=== PATIENT | male | born 1960 | race Caucasian/White ===

== ENCOUNTER 2017-12-07 07:44 | Day surgery (SDC) | payer OTHER ==
--- NOTE | 2017-11-30 09:15 | RADIOLOGY REPORT (SQ) ---
EXAM DESCRIPTION: CHEST PA/LATERAL COMPLETED DATE/TIME: 11/30/2017 9:02 am REASON FOR STUDY: PRE-OP COMPARISON: AP chest 04/26/2010 EXAM PARAMETERS: NUMBER OF VIEWS: two views TECHNIQUE: Digital Frontal and Lateral radiographic views of the chest acquired. RADIATION DOSE: NA LIMITATIONS: none FINDINGS: LUNGS AND PLEURA: No opacities, masses or pneumothorax. No pleural effusion. MEDIASTINUM AND HILAR STRUCTURES: No masses or contour abnormalities. HEART AND VASCULAR STRUCTURES: Heart normal size. No evidence for failure. BONES: No acute findings. HARDWARE: None in the chest. OTHER: No other significant finding. IMPRESSION: NO SIGNIFICANT RADIOGRAPHIC FINDING IN THE CHEST. TECHNICAL DOCUMENTATION: JOB ID: [id number] [employer]- All Rights Reserved Reading location - IP/workstation name: [email or web address]
--- NOTE | 2017-11-30 09:22 | EKG REPORT ---
SEVERITY:- NORMAL ECG - SINUS RHYTHM : Confirmed by: Leobardo Quintana 30-Nov-2017 09:21:11
[2017-11-30 09:32] LABS: ABSOLUTE BASOPHILS # (AUTO) 0.1 10^3/uL (0.0-0.2); ABSOLUTE EOSINOPHILS # (AUTO) 0.3 10^3/uL (0.0-0.6); ABSOLUTE LYMPHOCYTES (AUTO) 1.9 10^3/uL (0.5-4.7); ABSOLUTE MONOCYTES (AUTO) 0.6 10^3/uL (0.1-1.4); ABSOLUTE NEUT (AUTO) 5.1 10^3/uL (1.7-8.2); BASOPHILS % (AUTO) 0.6 % (0-2); EOSINOPHILS % (AUTO) 3.9 % (0-6); HEMATOCRIT 43.6 % (37.9-51.0); HEMOGLOBIN 14.3 g/dL (13.5-17.0); LYMPHOCYTES % (AUTO) 23.8 % (13-45); MEAN CORPUSCULAR HEMOGLOBIN 26.5 pg (27.0-33.4); MEAN CORPUSCULAR HGB CONC 32.9 g/dL (32.0-36.0); MEAN CORPUSCULAR VOLUME 81 fl (80-97); MONOCYTES % (AUTO) 7.5 % (3-13); PLATELET COUNT 327 10^3/uL (150-450); RED BLOOD COUNT 5.41 10^6/uL (4.35-5.55); RED CELL DISTRIBUTION WIDTH 14.2 % (11.5-14.0); SEGMENTED NEUTROPHILS % (AUTO) 64.2 % (42-78); TOTAL CELLS COUNTED % (AUTO) 100 %
[2017-11-30 09:35] LABS: APPEARANCE,URINE CLEAR; BILIRUBIN,URINE NEGATIVE (NEGATIVE); COLOR,URINE YELLOW; GLUCOSE, URINE NEGATIVE (NEGATIVE); KETONES,URINE NEGATIVE (NEGATIVE); LEUKOCYTE ESTERASE,URINE NEGATIVE (NEGATIVE); NITRITE,URINE NEGATIVE (NEGATIVE); PROTEIN,URINE NEGATIVE (NEGATIVE); URINE SPECIFIC GRAVITY 1.013; UROBILINOGEN,URINE NEGATIVE mg/dL (<2.0)
[2017-11-30 10:02] LABS: ANION GAP 13 (5-19); BLOOD UREA NITROGEN 17 mg/dL (7-20); CALCIUM 9.6 mg/dL (8.4-10.2); CARBON DIOXIDE 29 mmol/L (22-30); CHLORIDE 97 mmol/L (98-107); GLUCOSE 210 mg/dL (75-110); POTASSIUM 4.3 mmol/L (3.6-5.0); SODIUM 139.3 mmol/L (137-145)
[~2017-12-07 07:44] MED LIST: BUPIVACAINE HCL 0.5 % INJ/PF 30 ML SDV ONE; CEFAZOLIN 2 GM/D5W RTU 2 GM/50 ML RTUPB IV PRN; NORMAL SALINE 1000 ML (RENAL PATIENTS) IV PRN
[2017-12-07] MEDS ORDERED: CEFAZOLIN SODIUM 2 GM in DEXTROSE 5%-WATER 100 ML IV PRN (08:01)
[2017-12-07 09:13] LABS: POTASSIUM 4.1 mmol/L (3.6-5.0)
[2017-12-07] MEDS ORDERED: MORPHINE SULFATE 10 MG/ML INJ IV PRN ×2 (10:24→11:24)
[2017-12-07] MEDS ORDERED: DIPHENHYDRAMINE HCL 50 MG/ML VIAL IV PRN (10:24)
[2017-12-07] MEDS ORDERED: FENTANYL CITRATE INJ/PF 100 MCG/2 ML AMPUL IV PRN ×3 (10:24)
[2017-12-07] MEDS ORDERED: MEPERIDINE HCL/PF INJ 25 MG/1 ML DISP.SYRIN IV PRN (10:24)
[2017-12-07] MEDS ORDERED: ONDANSETRON HCL INJ/PF 4 MG/2 ML SDV IV PRN ×2 (10:24→11:24)
[2017-12-07] MEDS ORDERED: PROMETHAZINE HCL INJ 25 MG/1 ML VIAL IV PRN ×2 (10:24)
--- NOTE | 2017-12-07 11:08 | Operative Report ---
Operative Report DATE OF SURGERY: 12/07/17 PREOPERATIVE DIAGNOSIS: Left hand spontaneous EPL tendon rupture POSTOPERATIVE DIAGNOSIS: Left hand spontaneous EPL rupture OPERATION: LEFT extensor indicis proprius to extensor pollicis longus tendon transfer SURGEON: KRISTINE HARRELL ANESTHESIA: GA COMPLICATIONS: None ESTIMATED BLOOD LOSS: Minimal PROCEDURE: Indication for above procedure: 57-year-old male with history of injury to his hand. Ever since the original injury he has been unable to extend his thumb. Upon examination of the office he was found to have a EPL spontaneous rupture. We discussed treatment options including operative versus nonoperative intervention including postoperative prognosis, outcomes and rehabilitation. After discussing risks and benefits decision was made to proceed with operative treatment. Procedure In Detail: Patient was seen and evaluated in the preoperative holding area. The LEFT upper extremity was initialized and marked. Patient received 2g of Ancef IV for bacterial prophylaxis. Patient was taken back to the operative room where transferred to the operative table and placed under general anesthesia. Once they were adequately anesthetized a nonsterile tourniquet was placed on the upper extremity. A surgical team debriefing was performed ensuring all instrumentation was available, the surgical procedure was discussed with possible concerns reviewed. The upper extremity was prepped with chlorhexidine and alcohol and draped in a sterile fashion. A timeout was done identifying correct patient, procedure and extremity everyone in attendance agree with this and verbalized no concerns. The extremity was exsanguinated the tourniquet was inflated to 250 mmHg. Longitudinal skin incision was made centered over the STT joint. Blunt dissection was performed. Small peripheral veins were coagulated with bipolar cautery. The EPL tendon was then identified with significant scarring to the underlying soft tissues and rupture at the level of the radial styloid. Extensor tenolysis of the EPL tendon was performed fully exposing the tendon and retracting it from the wound. I then turned my attention to proximally. Longitudinal skin incision was made along Cielo's tubercle. Dissection was performed. A tunnel between the EPL remanent distally and the dorsal skin incision was established. I then made a small transverse incision within the extensor retinaculum overlying the fourth dorsal compartment and the muscular EIP tendon was identified. A transverse skin incision was made over the index MP joint. Blunt dissection performed and the ulnar extensor tendon was identified. I then confirmed the EIP tendon proximally and distally once this was confirmed it was released distally at the MCP joint and tunneled to the dorsal wound. From the dorsal wound it was then tunneled to the wound overlying the STT joint. While maintaining wrist extension and full thumb extension including the MP and IP joints for Pulvertaft weave's were placed into the distal remnant of the EPL tendon. This was then secured with horizontal mattress 3-0 Ethibond suture after the first suture was placed I checked tenodesis to confirm full extension of the thumb with wrist flexion and flexion of the thumb tip to the level of the PIP joint with wrist extension. Once I was satisfied with the tension. I completed fixation of the Pulvertaft weave with additional horizontal mattress 3 -0 Ethibond. The remanent of the EIP tendon was then folded back onto itself and secured with [id number] sutures. Once again tenodesis of the wrist was performed confirming adequate tension of the tendon transfer. The remanent EIP and EPL tendons were then debrided. Wound was copiously irrigated with normal saline. Subcutaneous tissues were closed with interrupted 4-0 Monocryl suture. Skin was closed with 4-0 nylon suture. 20 cc of 0.5% Marcaine with epinephrine was injected for postoperative pain control. Wound was dressed Xeroform 4 x 4's and patient was placed in a thumb spica splint maintaining full extension of the IP and MP joints and wrist at 25 of extension. Tourniquet was deflated. Patient had good peripheral perfusion. Sponge counts, instrument counts, needle counts counts were correct. Patient was then awoken from anesthesia. Transferred from the operating room table to the operating room stretcher. There was no intraoperative complications patient tolerated procedure well stable to PACU. Postoperative plan: Patient will follow-up the office in 2 weeks at which point sutures will be removed to be transitioned to a thumb spica cast. At 4 weeks postoperatively patient will be set up for occupational therapy to begin as per EIP-EPL tendon transfer.
[2017-12-07] MEDS ORDERED: RINGERS SOLUTION,LACTATED 1,000 ML IV PRN (11:24)
[2017-12-07] MEDS ORDERED: OXYCODONE-ACETAMINOPHEN 5-325 MG TABLET PO PRN (11:24)
--- NOTE | 2017-12-07 11:24 | Discharge Summary ---
Discharge Summary (SDC) - Discharge Final Diagnosis: Rupture of flexor pollicis longus left hand Date of Surgery: 12/07/17 Discharge Date: 12/07/17 Condition: Good Treatment or Instructions: Schedule Follow Up w/ Dr. Oneal Matamoros @ [facility] to be seen in 10-14 days or as scheduled [place]: [place]: [place]: Ice and elevate Keep splint clean/dry/intact. If your fingers become numb please unwrap the Ras wrap but leave the splint in place, if the sensation does not return within 30 minutes please return to the emergency department. Please use ibuprofen (Motrin or Advil) 600-800 mg every 8 hours as needed for pain or fever DO NOT TAKE w/ TORADOL may use once TORADOL complete. You may also use acetaminophen (Tylenol) 1000 mg every 4-6 hours as needed for pain or fever. Please be aware that many medications contain acetaminophen, do not exceed a total of 1000 mg of acetaminophen every 6 hours. If ibuprofen and acetaminophen are not sufficient for your pain you may take the Percocet/[place]. Please be aware that the Percocet/[place] does contain Tylenol. Stool softener of choice when on pain medication. Prescriptions: Oxycodone HCl/Acetaminophen [Oxycodone-Acetaminophen 5-325] 1 each PO Q6 #35 tablet Referrals: CAROLYN CLINE MD [Primary Care Provider] - Discharge Diet: As Tolerated, Regular Respiratory Treatments at Home: Deep Breathing/Coughing Discharge Activity: No Lifting Over 10 Pounds, No Lifting/Push/Pulling, No tub bath Home Care Assistance: None Needed Report the Following to Your Physician Immediately: Shortness of Breath, Fever over 101 Degrees, Unusual Bleeding, Redness, Swelling, Drainage-Yellow
[2017-12-07 14:17] VITALS: BP 130/70
== END 2017-12-07 13:20 | disposition home or self-care (01) ==
LOC: OROUT 07:44
PROVIDERS: ATTEND Orthopaedic Surgery
DX: M66.242 Spontaneous rupture of extensor tendons, left hand (principal); I10 Essential (primary) hypertension; E03.9 Hypothyroidism, unspecified; E78.00 Pure hypercholesterolemia, unspecified; E11.9 Type 2 diabetes mellitus without complications; Z79.899 Other long term (current) drug therapy; M19.90 Unspecified osteoarthritis, unspecified site
CPT/HCPCS: 93005; 36415 ×2; 82947; 84132; 85025; 80048; 81001; 83036; 71046; 93010; 26485; J2250; J3490 ×2; J0690; J1100; J3010; J2765; J2405; J2704; S0028; J0131; 1810